=== PATIENT | male | born 1960 | race Caucasian/White ===

== ENCOUNTER 2018-07-02 04:33 | Emergency (ER) | payer OTHER ==
[~2018-07-02] VITALS: Ht 175.3 cm; Wt 95.2 kg
--- OUTSIDE RECORDS SUMMARY | ~2018-07-02 | XMS | Clinical Summary ---
Demographics + + + | Address | [address] | | | [place] [address] | + + + | Home Phone | | + + + | Preferred Language | Unknown | + + + | Marital Status | | + + + | Judaism Affiliation | 1013 | + + + | Race | Unknown | + + + | Ethnic Group | Unknown | + + + Author + + + | Author | [facility] | | | and [place] | + + + | Organization | [facility] | | | and [place] | + + + | Address | Unknown | + + + | Phone | Unavailable | + + + Support + + + + + | Name | Relationship | Address | Phone | + + + + + | Kimmy Turner | ECON | [address] | | | | | [place], [place] | | | | | [address] | | + + + + + | No Jhaveri | ECON | [address] | | | | | [place] | | | | | [address] | | + + + + + Care Team Providers + +------+ + | Care Bench Molder Name | Role | Phone | + +------+ + | Shoaib Melgoza DO | PP | | + +------+ + Allergies No Known Allergies Medications + + + +---------+------+------+-------+ | Medication | Sig | Dispensed | Refills | Star | End | Statu | | | | | | t | Date | s | | | | | | Date | | | + + + +---------+------+------+-------+ | omeprazole | Take 20 mg by mouth | | 0 | | | Activ | | (PRILOSEC) 20 mg | every morning | | | | | e | | capsule | (before breakfast). | | | | | | + + + +---------+------+------+-------+ | aspirin 81 MG EC | Take 1 tablet by | 30 | 11 | 10/1 | | Activ | | tablet | mouth Daily. | tablet | | 5/20 | | e | | | | | | 18 | | | + + + +---------+------+------+-------+ | atorvaSTATin | Take 1 tablet by | 30 | 11 | 10/1 | | Activ | | (LIPITOR) 80 MG | mouth nightly. | tablet | | 4/20 | | e | | tablet | | | | 18 | | | + + + +---------+------+------+-------+ | metoprolol | Take 1 tablet by | 30 | 11 | 10/1 | | Activ | | succinate | mouth Daily. | tablet | | 5/20 | | e | | (TOPROL-XL) 50 mg 24 | | | | 18 | | | | hr tablet | | | | | | | + + + +---------+------+------+-------+ | nitroglycerin | Place 1 tablet under | 25 | 11 | 10/1 | | Activ | | (NITROSTAT) 0.4 mg | the tongue every 5 | tablet | | 4/20 | | e | | SL tablet | minutes as needed | | | 18 | | | | | for Chest pain (Hold | | | | | | | | for systolic blood | | | | | | | | pressure less than | | | | | | | | 100). | | | | | | + + + +---------+------+------+-------+ | ticagrelor | Take 1 tablet by | 180 | 3 | 11/0 | | Activ | | (BRILINTA) 90 mg | mouth 2 times daily. | tablet | | 8/20 | | e | | tablet | | | | 18 | | | + + + +---------+------+------+-------+ | lisinopril | Take 1 tablet by | 30 | 5 | / | | Activ | | (PRINIVIL, ZESTRIL) | mouth Daily. | tablet | | 0/20 | | e | | 20 mg tablet | | | | 19 | | | + + + +---------+------+------+-------+ Active Problems + + + | Problem | Noted Date | + + + | STEMI involving left anterior descending coronary artery | 11/19/2017 | + + + | Atherosclerosis of [place] coronary artery of [place] heart with | 11/19/2017 | | unstable angina pectoris | | + + + | Dyslipidemia | 11/19/2017 | + + + | Essential hypertension | 11/19/2017 | + + + | Tobacco abuse | 11/19/2017 | + + + | Hematemesis | 06/12/2015 | + + + | Hemoptysis | 06/12/2015 | + + + | ABDOMINAL PAIN, UNSPECIFIED SITE | 07/11/2011 | + + + + + | Overview: ICD-10 Record update | + + + + + | DIVERTICULITIS, ACUTE | 07/11/2011 | + + + | PURULENT RHINITIS | 04/05/2010 | + + + Encounters +--------+ + + + + | Date | Type | Specialty | Care Team | Description | +--------+ + + + + | 04/23/ | Telephone | | Gerhard Gregory MD | Other (DOT paperwork | | 2018 | | | | sent) | +--------+ + + + + from Last 3 Months Immunizations + + + + | Name | Dates Previously Given | Next Due | + + + + | INFLUENZA PF | 11/18/2017 | | | QUAD(PED/ADOL/ADULT) | | | | ,PSKT or VIAL | | | + + + + | PNEUMOCOCCAL | 11/18/2017 | | | POLYSACCHARIDE | | | | 23-VALENT (PPSV23) | | | + + + + | TDAP, (ADOL/ADULT) | 08/01/2016 | | + + + + Family History + + +------+ + | Medical History | Relation | Name | Comments | + + +------+ + | Cancer | Maternal | | | | | Grandmoth | | | | | er | | | + + +------+ + | Cancer | Paternal | | | | | Grandfath | | | | | er | | | + + +------+ + + +------+--------+ + | Relation | Name | Status | Comments | + +------+--------+ + | Maternal Grandmother | | | | + +------+--------+ + | Paternal Grandfather | | | | + +------+--------+ + Social History + + + +--------+ + | Tobacco Use | Types | Packs/Day | Years | Date | | | | | Used | | + + + +--------+ + | Former Smoker | Cigars, Cigarettes | 0.5 | | Quit: 11/19/2017 | + + + +--------+ + + +---+---+---+ | Smokeless Tobacco: | | | | | Never Used | | | | + +---+---+---+ + + +---------+ + | Alcohol Use | Drinks/We | oz/Week | Comments | | | ek | | | + + +---------+ + | No | 14 Cans | 8.4 | | | | of beer | | | + + +---------+ + + + + | Sex Assigned at | Date Recorded | | | | + + + | Not on file | | + + + + + + + | Job Start Date | Occupation | Industry | + + + + | Not on file | Not on file | Not on file | + + + + + + + + | Travel History | Travel Start | Travel End | + + + + + + | No recent travel history available. | + + Last Filed Vital Signs + + + + | Vital Sign | Reading | Time Taken | + + + + | Blood Pressure | 132/74 | 02/15/2018958 PST | + + + + | Pulse | 76 | 02/15/2018958 PST | + + + + | Temperature | 36.3 C (97.3 F) | 02/05/2018311 PST | + + + + | Respiratory Rate | 16 | 02/15/2018958 PST | + + + + | Oxygen Saturation | 98% | 02/05/2018611 PST | + + + + | Inhaled Oxygen | - | - | | Concentration | | | + + + + | Weight | 87.1 kg (192 lb) | 02/15/2018958 PST | + + + + | Height | 175.3 cm (5' 9") | 02/15/2018958 PST | + + + + | Body Mass Index | 28.35 | 02/15/2018958 PST | + + + + Plan of Treatment + + + + + | Health Maintenance | Due Date | Last Done | Comments | + + + + + | Hepatitis C | | | | | Screening | 2 | | | + + + + + | Colorectal Cancer | | | | | Screening | 2 | | | | (Colonoscopy) | | | | + + + + + | Vaccine: Zoster (1 | | | | | of 2) | 2 | | | + + + + + | Vaccine: | | 08/01/2016 | | | Dtap/Tdap/Td (2 - | 7 | | | | Td) | | | | + + + + + | Vaccine: Influenza | Completed | 11/18/2017 | | + + + + + | Vaccine: | Completed | 11/18/2017 | | | Pneumococcal 19-64 | | | | | (PPSV23 only) Medium | | | | | Risk | | | | + + + + + Implants + +-------+------+ +--------+--------+--------+ | Implanted | Type | Area | Manufacture | Device | Shelf | Model | | | | | r | | Expira | / | | | | | | Identi | tion | Serial | | | | | | fier | Date | / Lot | + +-------+------+ +--------+--------+--------+ | Stent Crnry Xience | Stent | | MCKEON | [id number] | 06/04/ | [id number] | | [id number] - | | | VASCULAR - | [id number] | 2019 | 0-15 / | | [id number]: Qty: 1 | | | ABVA | 17 | | | | on 11/17/2017 by Colt, | | | | | | /[id number] | | MD Gerhard | | | | | | 43 | + +-------+------+ +--------+--------+--------+ Results Not on filefrom Last 3 Months Insurance + +--------+ +--------+ +---------+------+ | Payer | Benefi | Subscriber | Effect | Phone | Address | Type | | | t Plan | ID | mei | | | | | | / | | Dates | | | | | | Group | | | | | | + +--------+ +--------+ +---------+------+ | [employer] | PACIFI | [id number] | 02/06/19 | [phone] | | PPO | | | [employer] | | 18-Pre | 2 | | | | | E | | sent | | | | | | FIRST | | | | | | | | CHOICE | | | | | | + +--------+ +--------+ +---------+------+ + +--------+ +--------+ + + | Guarantor Name | Accoun | Relation to | Date | Phone | Billing Address | | | t Type | Patient | of | | | | | | | | | | + +--------+ +--------+ + + | No Jhaveri | Person | Spouse | [birth year] | [address] | | | al/Fam | | 1965 | [phone] | [facility] [place] | | | [place] | | | 3 (Home) | [phone] | + +--------+ +--------+ + + | Juarez Jhaveri | Third | Self | [birth year] | [address] | | | Democrat | | 1960 | [phone] | [place], [place] | | | [place] | | | 9 (Home) | [address] | | | ity | | | [phone] | | | | | | | 5 (Work) | | + +--------+ +--------+ + + Advance Directives Patient has advance care planning documents, and code status on file. For more information, please contact:[facility] [place] [place] [address] + + + + + | Code Status | Date | Date | Comments | | | Activated | Inactivated | | + + + + + | Full Code | 11/18/2017 | 11/19/2017 | | | | 0:11 | 13:44 | | + + + + +
--- OUTSIDE RECORDS SUMMARY | ~2018-07-02 | XMS | Encounter Summary ---
Demographics + + + | Address | [address] | | | [place] [address] | + + + | Home Phone | | + + + | Preferred Language | Unknown | + + + | Marital Status | | + + + | Christianity Affiliation | 1013 | + + + | Race | Unknown | + + + | Ethnic Group | Unknown | + + + Author + + + | Author | [facility] | | | and [place] | + + + | Organization | [facility] | | | and [place] | + + + | Address | Unknown | + + + | Phone | Unavailable | + + + Support + + + + + | Name | Relationship | Address | Phone | + + + + + | Kimmy Turner | ECON | [address] | | | | | [place], [place] | | | | | [address] | | + + + + + | No Jhaveri | ECON | [address] | | | | | [place], [place] | | | | | [address] | | + + + + + Care Team Providers + +------+ + | Care Erp Analyst Name | Role | Phone | + +------+ + | Shoaib Melgoza DO | PCP | | + +------+ + Reason for Visit +--------+ + | Reason | Comments | +--------+ + | Other | DOT paperwork sent | +--------+ + Encounter Details +--------+ + + + + | Date | Type | Department | Care Team | Description | +--------+ + + + + | 04/23/ | Telephone | [facility] [place] | Gerhard Gregory MD | Other (DOT paperwork | | 2018 | | CARDIOLOGY [address] | | sent) | | | | [place], | | | | | | [place] [address] | | | | | | [phone] | | | +--------+ + + + + Social History + + + +--------+ [...] recent travel history available. | + + documented as of this encounter Plan of Treatment Not on filedocumented as of this encounter Visit Diagnoses Not on filedocumented in this encounter"
--- OUTSIDE RECORDS SUMMARY | ~2018-07-02 | XMS | Clinical Summary ---
Demographics + + + | Address | [address] | | | [place] [address] | + + + | Home Phone | | + + + | Preferred Language | Unknown | + + + | Marital Status | | + + + | Druze Affiliation | 1013 | + + + | Race | Unknown | + + + | Ethnic Group | Unknown | + + + Author + + + | Author | [facility] | | | and [place] | + + + | Organization | [facility] | | | and [...] [place], [place] | | | | | [address] | | + + + + + | No Jhaveri | ECON | [address] | | | | | [place] | | | | | [address] | | + + + + + Care Team Providers + +------+ + | Care Oceanographic Meteorologist Name | Role | Phone | + [...] | + + + | Atherosclerosis of [place] coronary artery of [place] heart with | 11/19/2017 | | unstable [...] Xience | Stent | | [facility] | [id number] | 06/04/ | 799875 | | [id number] - | | | VASCULAR - | [id number] | 2019 | 0-15 / | | [id number]: Qty: 1 | | | ABVA | 17 | | | | on 11/17/2017 by Colt, | | | | | | /[phone] | | MD Gerhard | | | [...] +--------+ +---------+------+ | [employer] | PACIFI | [id number] | 02/06/19 | [phone] | | PPO | | | [employer] [...] al/Fam | | 1965 | [phone] | [facility] [place] | | | [address] | | | 3 (Home) | [address] | + +--------+ +--------+ + + | Juarez Jhaveri | Third | Self | [birth year] | [address] | | | Green Party | | 1960 | [phone] | [place], [place] | | | [place] | | | 9 (Home) | [address] | | | ity | | | [phone] | | | | | | | 5 (Work) | | + +--------+ +--------+ + + Advance Directives Patient has advance care planning documents, and code status on file. For more information, please contact:[facility] [address] [place] [address] + + + + + | Code Status | Date | Date | Comments | | | Activated | Inactivated | | + + + + + | Full Code | 11/18/2017 | 11/19/2017 | | | | 0:11 | 13:44 | | + + + + +
--- OUTSIDE RECORDS SUMMARY | ~2018-07-02 | XMS | Encounter Summary ---
Demographics + + + | Address | [address] | | | [place] [address] | + + + | Home Phone | | + + + | Preferred Language | Unknown | + + + | Marital Status | | + + + | Restorationist Affiliation | 1013 | + + + | Race | Unknown | + + + | Ethnic Group | Unknown | + + + Author + + + | Author | [facility] | | | and [place] | + + + | Organization | [facility] | | | and [place] | + + + | Address | Unknown | + + + | Phone | Unavailable | + + + Support + + + + + | Name | Relationship | Address | Phone | + + + + + | Kimmy Turner | ECON | [address] | | | | | [place], [place] | | | | | [address] | | + + + + + | No Jhaveri | ECON | [address] | | | | | [place], [place] | | | | | [address] | | + + + + + Care Team Providers + +------+ + | Care Officer Captain Name | Role | Phone | + [...] | | | | | | [place] [address] | | | | | | [phone] | | | +--------+ + + + [...]
[2018-07-02] MEDS ORDERED: BRILINTA90 MG PO (04:42)
[2018-07-02] MEDS ORDERED: ASPIRIN EC81 MG PO (04:42)
[2018-07-02] MEDS ORDERED: METOPROLOL SUCC50 MG PO (04:42)
[2018-07-02] MEDS ORDERED: ATORVASTATIN CA80 MG PO (04:42)
[2018-07-02] MEDS ORDERED: LISINOPRIL20 MG PO (04:42)
--- NOTE | 2018-07-03 19:13 | EKG ---
[facility] [address] [facility] [place] [address] Signed Normal sinus rhythm Nonspecific intraventricular block Abnormal ECG No previous ECGs available Confirmed by RADHA GOMEZ MD ([id number]) on 07/03/2018 7:12:55 PM Electronically Signed By: RADHA GOMEZ MD 07/03/18 191 PATIENT NAME: JAMIE ESCOTO Electrocardiogram DATE OF : 64 PHYSICIAN: RADHA GOMEZ MD REPORT #: [id number] REPORT IS CONFIDENTIAL AND NOT TO BE RELEASED WITHOUT AUTHORIZATION
== END 2018-07-02 07:39 | disposition home or self-care (01) ==
LOC: ED 04:33
DX: R07.9 Chest pain, unspecified (principal); Z87.891 Personal history of nicotine dependence; Z95.5 Presence of coronary angioplasty implant and graft
CPT/HCPCS: 71045; 80053; 83735; 84484; 85025; 85610; 93005; 93010; 96374; 99285-25; J2270